=== PATIENT | female | born 1955 | race Caucasian/White ===

== ENCOUNTER 2016-12-16 05:39 | Inpatient (IN) ==
[2016-12-16] MEDS ORDERED: Nitroglycerin 0.4 MG TAB.SUBL SL ONE (05:53)
--- NOTE | 2016-12-16 05:57 | Emergency Department Note ---
Disposition Clinical Impression: Chest pain Qualifiers: Chest pain type: other chest pain Qualified Code(s): R07.89 - Other chest pain Disposition: Still a Patient Condition: Good Referrals: Unassigned,Provider [Non-Partnered Physician] - Forms: ED Satisfaction Letter Chest Pain HPI - General Chief Complaint: ED Chest Pain Stated Complaint: chest pain Time Seen by Provider: 12/16/16 05:55 Source: patient Mode of arrival: EMS Limitations: no limitations Vital Signs Reviewed: Yes Nursing Notes Reviewed: Yes - History of Present Illness HPI Narrative: 61-year-old female history of smoking abuse presents to the ER via EMS due to chest pain. Patient states pain began yesterday evening. Reports it was at rest. She describes a tightness in her chest with intermittent sharpness and radiation into her back. She reports that she was recently worked up for negative stress test back in May 2016. Patient reports she has felt some shortness of breath with this. No recent illnesses. No fevers, cough, wheezing , vomiting, diarrhea. No history of IA, DVT or PE. No other complaints. Pt complaint: chest pain Onset (ago): hour(s) Duration: constant Onset: during rest Pain Location: left chest Severity: moderate Quality: tightness Pain Radiation: back Improves with: nothing Worsens with: nothing Associated symptoms: Reports: dyspnea. Denies: nausea, vomiting, fever, cough Treatments prior to arrival chest pain: none - Related Data On Oral Contraceptives: No Home Medications Medication Instructions Recorded Confirmed Citalopram Hydrobromide 12/31/15 [Citalopram HBr] Cyclobenzaprine [Flexeril] 12/31/15 Meloxicam [Mobic] 12/31/15 Trazodone HCl [TraZODone] 12/31/15 12/31/15 Previous Rx's Medication Instructions Recorded Amoxicillin 875 mg PO BID #20 tablet 12/31/15 Allergies Allergy/AdvReac Type Severity Reaction Status Date / Time No Known Allergies Allergy Verified 09/25/15 09:18 All systems ED: reviewed and negative except as stated. Constitutional: Denies: fever Cardiovascular: Reports: chest pain. Denies: palpitations, dyspnea on exertion Respiratory: Reports: dyspnea. Denies: cough, wheezes Gastrointestinal: Denies: abdominal pain, nausea, vomiting Musculoskeletal: Reports: back pain. Denies: neck pain Chest Pain PMH - Past Medical History Medical history: Reports: non-contributory Surgical history: Reports: appendectomy, hysterectomy, orthopedic, other Psychiatric history: Reports: depression - Social History Smoking Status: Current every day smoker Alcohol use: Reports: none Drug use: Reports: none Physical Exam - General Limitations: no limitations General appearance: alert, in no apparent distress - Head Head exam: atraumatic, normocephalic, normal inspection - Eye Eye exam: Present: normal appearance, EOMI - ENT ENT exam: normal exam - Neck Neck exam: Present: normal inspection - Chest Chest inspection: Present: normal inspection, symmetric chest wall rise. Absent : tenderness - Respiratory Respiratory exam: Present: normal lung sounds bilaterally - Cardiovascular Cardiovascular exam: Present: regular rate, normal rhythm, normal heart sounds - Abdominal Exam Abdominal exam: Present: soft, Non-Tender. Absent: tenderness - Extremities Exam Extremities exam: Present: normal inspection, full ROM - Expanded Upper Extremity Exam Shoulder exam: Present: normal inspection, full ROM Arm exam: Present: normal inspection, full ROM Elbow exam: Present: normal inspection, full ROM Forearm/Wrist exam: Present: normal inspection, full ROM Hand exam: Present: normal inspection, full ROM - Expanded Lower Extremity Exam Hip/Pelvis exam: Present: normal inspection, full ROM Upper leg exam: Present: normal inspection, full ROM Knee exam: Present: normal inspection, full ROM Lower leg exam: Present: normal inspection, full ROM Ankle exam: Present: normal inspection, full ROM Foot/toe exam: Present: normal inspection, full ROM - Neurological Exam Neurological exam: Present: alert - Psychiatric Psychiatric exam: Present: normal affect, normal mood - Skin Skin exam: Present: warm, dry, intact, normal color Course Course Narrative: Patient seen and examined. Vital signs reviewed. We will get an EKG, chest x- ray as well as labs including troponin. We will give sublingual nitroglycerin and reassess. Vital Signs Temperature 98.7 F 12/16/16 06:02 Pulse Rate 107 12/16/16 06:02 Respiratory Rate 20 12/16/16 06:02 Blood Pressure 109/53 12/16/16 06:02 O2 Sat by Pulse Oximetry 94 L 12/16/16 06:02 Temperature 98.7 F 12/16/16 06:02 Pulse Rate 107 12/16/16 06:02 Respiratory Rate 20 12/16/16 06:02 Blood Pressure 109/53 12/16/16 06:02 O2 Sat by Pulse Oximetry 94 L 12/16/16 06:09 Oxygen Delivery Oxygen Delivery Nasal Cannula Chest Pain - MDM Narrative Medical decision making narrative: 61-year-old female presents to the ER due to chest pain, back pain and left- sided sharp chest pain intermittently. EKG is sinus tachycardia here. D-dimer and troponin were negative. She does have a discernible difference and radial pulses with diminishment on the left. Patient signed out the dayshift team. - Lab Data Lab results reviewed: Yes I reviewed the patient's lab results. Result diagrams: 12/16/16 06:28 12/16/16 06:28 Lab Results 12/16/16 12/16/16 12/16/16 Range/Units 06:28 06:28 06:28 WBC 7.9 (4.3-11.1) K/mcL RBC 4.86 (3.82-4.97) M/mcL Hgb 14.7 (11.5-15.4) g/dL Hct 43.9 (35.3-44.9) % MCV 90.3 (83.0-100.0) fL MCH 30.2 (28.0-33.3) pg MCHC 33.5 (31.6-35.5) g/dL RDW 13.2 (11.5-14.5) % Plt Count 303 (140-400) K/mcL MPV 10.6 (9.4-12.4) fL Immature Gran % 0.8 (0-4) % Seg Neutrophils % 83.0 % Lymphocytes % 6.1 % Monocytes % 8.6 % Eosinophils % 0.4 % Basophils % 1.1 % Neutrophils # 6.6 (1.6-8.9) K/mcL Lymphocytes # 0.5 L (0.6-4.6) K/mcL Monocytes # 0.7 (0.0-1.3) K/mcL Eosinophils # 0.0 (0.0-0.6) K/mcL Basophils # 0.1 (0.0-0.2) K/mcL PT 11.0 (9.4-12.1) Seconds INR 1.0 APTT 34.3 (26.0-36.0) Seconds D-Dimer 490 (0-500) ng/mLFEU Sodium (136-145) mEq/L Potassium (3.5-4.5) mEq/L Chloride (98-109) mEq/L Carbon Dioxide (19-29) mEq/L BUN (7-20) mg/dL Creatinine (0.57-1.11) mg/dL Est GFR ( Amer) (> 60) Est GFR (Non-Af Amer) (> 60) BUN/Creatinine Ratio (6-26) Glucose (70-99) mg/dL Calculated Osmolality (280-300) Calcium (8.6-10.8) mg/dL Troponin I (0-0.03) ng/mL B-Natriuretic Peptide 22 (0-100) pg/mL 12/16/16 12/16/16 Range/Units 06:28 06:28 WBC (4.3-11.1) K/mcL RBC (3.82-4.97) M/mcL Hgb (11.5-15.4) g/dL Hct (35.3-44.9) % MCV (83.0-100.0) fL MCH (28.0-33.3) pg MCHC (31.6-35.5) g/dL RDW (11.5-14.5) % Plt Count (140-400) K/mcL MPV (9.4-12.4) fL Immature Gran % (0-4) % Seg Neutrophils % % Lymphocytes % % Monocytes % % Eosinophils % % Basophils % % Neutrophils # (1.6-8.9) K/mcL Lymphocytes # (0.6-4.6) K/mcL Monocytes # (0.0-1.3) K/mcL Eosinophils # (0.0-0.6) K/mcL Basophils # (0.0-0.2) K/mcL PT (9.4-12.1) Seconds INR APTT (26.0-36.0) Seconds D-Dimer (0-500) ng/mLFEU Sodium 138 (136-145) mEq/L Potassium 4.4 (3.5-4.5) mEq/L Chloride 105 (98-109) mEq/L Carbon Dioxide 23 (19-29) mEq/L BUN 10 (7-20) mg/dL Creatinine 0.86 (0.57-1.11) mg/dL Est GFR ( Amer) > 60 (> 60) Est GFR (Non-Af Amer) > 60 (> 60) BUN/Creatinine Ratio 12 (6-26) Glucose 97 (70-99) mg/dL Calculated Osmolality 285 (280-300) Calcium 8.7 (8.6-10.8) mg/dL Troponin I 0.01 (0-0.03) ng/mL B-Natriuretic Peptide (0-100) pg/mL - Radiology Data Radiology results reviewed: Yes I reviewed the patient's radiology results. Chest X-Ray 12/16/16 05:53 IMPRESSION: No acute disease. D/ / Ifeanyi Carlisle MD / Ifeanyi Carlisle MD Interpreting Provider: Ifeanyi Carlisle MD - EKG Data EKG attestation: Yes I reviewed and interpreted this EKG. EKG results narrative: EKG demonstrates sinus tachycardia with a rate of 111. Normal axis. [place] interval 143 QRS duration [address] elevations or depressions. No acute ischemic findings. No significant changes from previous EKG dated 02/04/12. Heart Score - Score History: Slightly Suspicious EKG: Non Specific repolarisation Disturbance Age: 45-65 Risk Factors: No risk factors known Troponin: Less than normal limit HEART Score Total: 2 Attestation Statement - Attestation Attestation: IEmile MD, personally performed a history and physical exam of the patient and discussed their management with the resident. I reviewed the resident's note and agree with the documented findings, medical decision making , and plan of care. 61-year-old female presents to emergency department with a complaint of one day history of mid anterior substernal chest pressure associated with intermittent sharp stabbing pains in the left chest. She also complains of pain in her mid back which is more constant. No radiation of the chest pain to the neck or jaw or down the arm. No increased shortness of breath. No diaphoresis. No nausea or vomiting. Patient has a history of anxiety and panic attacks. She denies any history of heart disease. No history of hypertension or diabetes or hyperlipidemia. On examination patient is a well-developed well-nourished female in no acute distress. Alert and oriented 3. There is no cyanosis or diaphoresis. Chest is nontender to palpation. Breath sounds are clear and equal bilaterally. Heart regular rate and rhythm. Abdomen soft and nontender with normal bowel sounds. No acute changes on EKG. Chest x-ray negative. Labs reviewed. At shift change the patient is being signed out to the oncoming dayshift team, Dr. Hidalgo and Dr. Angel.
[2016-12-16 06:43] LABS: Basophils # 0.1 K/mcL (0.0-0.2); Basophils % 1.1 %; Eosinophils % 0.4 %; Hematocrit 43.9 % (35.3-44.9); Hemoglobin 14.7 g/dL (11.5-15.4); Immature Granulocytes % 0.8 % (0-4); Lymphocytes # 0.5 K/mcL (0.6-4.6); Lymphocytes % 6.1 %; Mean Corpuscular HGB Conc 33.5 g/dL (31.6-35.5); Mean Corpuscular Hemoglobin 30.2 pg (28.0-33.3); Mean Corpuscular Volume 90.3 fL (83.0-100.0); Mean Platelet Volume 10.6 fL (9.4-12.4); Monocytes # 0.7 K/mcL (0.0-1.3); Monocytes % 8.6 %; Neutrophils # 6.6 K/mcL (1.6-8.9); Platelet Count 303 K/mcL (140-400); Red Blood Count 4.86 M/mcL (3.82-4.97); Red Cell Distribution Width 13.2 % (11.5-14.5)
[2016-12-16 06:52] LABS: Activated Partial Thrombo Time 34.3 Seconds (26.0-36.0)
[2016-12-16 06:57] LABS: BUN/Creatinine Ratio 12 (6-26); Blood Urea Nitrogen 10 mg/dL (7-20); Calcium 8.7 mg/dL (8.6-10.8); Carbon Dioxide 23 mEq/L (19-29); Chloride 105 mEq/L (98-109); Glucose 97 mg/dL (70-99); Osmolality,Calculated 285 (280-300); Potassium 4.4 mEq/L (3.5-4.5); Sodium 138 mEq/L (136-145); eGFR For African Americans > 60 (> 60); eGFR For Non-African Americans > 60 (> 60)
--- NOTE | 2016-12-16 07:43 | Emergency Department Note ---
Disposition Clinical Impression: Chest pain Qualifiers: Chest pain type: other chest pain Qualified Code(s): R07.89 - Other chest pain Disposition: Admitted As Inpatient Condition: Fair Referrals: Unassigned,Provider [Non-Partnered Physician] - Forms: ED Satisfaction Letter Time of Disposition: 09:57 Chest Pain HPI - General Chief Complaint: ED Chest Pain Stated Complaint: chest pain Time Seen by Provider: 12/16/16 07:32 Source: patient Mode of arrival: EMS Limitations: no limitations Vital Signs Reviewed: Yes Nursing Notes Reviewed: Yes - History of Present Illness Pain Location: left chest Severity scale (1-10): 5 Quality: tightness Improves with: nothing Worsens with: nothing Associated symptoms: Reports: dyspnea. Denies: nausea, vomiting, fever, cough - Related Data On Oral Contraceptives: No Home Medications Medication Instructions Recorded Confirmed Citalopram Hydrobromide 40 mg PO DAILY 12/31/15 12/16/16 [Citalopram HBr] Cyclobenzaprine [Flexeril] 10 mg PO TID PRN 12/31/15 12/16/16 Albuterol Sulfate [Albuterol 2 puff IH Q4HR PRN 12/16/16 12/16/16 Inhaler] Calcium Carbonate/Vitamin D3 1 tab PO DAILY 12/16/16 12/16/16 [Calcium 500 + Vit D Caplet] Hydroxyzine HCl 12.5 - 25 mg PO Q8H 12/16/16 12/16/16 Ibuprofen [Advil] 200 mg PO Q6H PRN 12/16/16 12/16/16 Naproxen Sodium [Aleve] 220 mg PO 12/16/16 Vitamin E (Dl,Tocopheryl Acet) 400 unit PO DAILY 12/16/16 12/16/16 [Vitamin E] Allergies Allergy/AdvReac Type Severity Reaction Status Date / Time acetaminophen [From Percocet] AdvReac Itching Verified 12/16/16 09:42 Oxycodone [From Percocet] AdvReac Itching Verified 12/16/16 09:42 Constitutional: Denies: fever Cardiovascular: Reports: chest pain. Denies: palpitations, dyspnea on exertion Respiratory: Reports: dyspnea. Denies: cough, wheezes Gastrointestinal: Denies: abdominal pain, nausea, vomiting Musculoskeletal: Reports: back pain. Denies: neck pain Chest Pain PMH - Past Medical History Medical history: Reports: non-contributory Surgical history: Reports: appendectomy, hysterectomy, orthopedic, other Psychiatric history: Reports: depression - Social History Smoking Status: Current every day smoker Alcohol use: Reports: none Drug use: Reports: none Physical Exam - General Limitations: no limitations General appearance: alert, in no apparent distress Course Course Narrative: Care signed out from the night team Dr. Bird and Dr. Gaspar, patient does have a history of aneurysms in her family brother with a defibrillator and the aneurysm, and equal pulses in tachycardia with chest pain into her back, even though the d-dimer is unremarkable, CTA chest ordered See Dr gaspar's note for documentation - Reevaluation(s) Reevaluation #1: CT of chest negative, given heart score of 4, discussed that the patient likely needs admission for chest pain rule out, Dr. Curtis accepting physician Time: 09:57 Vital Signs Temperature 98.7 F 12/16/16 06:02 Pulse Rate 107 12/16/16 06:02 Respiratory Rate 20 12/16/16 06:02 Blood Pressure 109/53 12/16/16 06:02 O2 Sat by Pulse Oximetry 94 L 12/16/16 06:02 Temperature 98.7 F 12/16/16 06:02 Pulse Rate 97 12/16/16 09:10 Respiratory Rate 18 12/16/16 09:10 Blood Pressure 131/72 12/16/16 09:10 O2 Sat by Pulse Oximetry 97 12/16/16 09:10 Oxygen Delivery Oxygen Delivery Nasal Cannula Chest Pain - MDM Narrative Medical decision making narrative: 61-year-old female with hard score 4, chest pain or rest since yesterday, radiating to back, concerning for ACS given her story there are no EKG changes initial troponin was negative, admitted to hospital service for chest pain rule out - Differential Diagnosis Likely: stable angina, unstable angina pectoris, atypical chest pain, st elevation myocardial infraction, chest pain - Medical Records Medical records reviewed: Yes I reviewed the patient's medical records. - Lab Data Lab results reviewed: Yes I reviewed the patient's lab results. Result diagrams: 12/16/16 06:28 12/16/16 06:28 Lab Results 12/16/16 12/16/16 12/16/16 Range/Units 06:28 06:28 06:28 WBC 7.9 (4.3-11.1) K/mcL RBC 4.86 (3.82-4.97) M/mcL Hgb 14.7 (11.5-15.4) g/dL Hct 43.9 (35.3-44.9) % MCV 90.3 (83.0-100.0) fL MCH 30.2 (28.0-33.3) pg MCHC 33.5 (31.6-35.5) g/dL RDW 13.2 (11.5-14.5) % Plt Count 303 (140-400) K/mcL MPV 10.6 (9.4-12.4) fL Immature Gran % 0.8 (0-4) % Seg Neutrophils % 83.0 % Lymphocytes % 6.1 % Monocytes % 8.6 % Eosinophils % 0.4 % Basophils % 1.1 % Neutrophils # 6.6 (1.6-8.9) K/mcL Lymphocytes # 0.5 L (0.6-4.6) K/mcL Monocytes # 0.7 (0.0-1.3) K/mcL Eosinophils # 0.0 (0.0-0.6) K/mcL Basophils # 0.1 (0.0-0.2) K/mcL PT 11.0 (9.4-12.1) Seconds INR 1.0 APTT 34.3 (26.0-36.0) Seconds D-Dimer 490 (0-500) ng/mLFEU Sodium (136-145) mEq/L Potassium (3.5-4.5) mEq/L Chloride (98-109) mEq/L Carbon Dioxide (19-29) mEq/L BUN (7-20) mg/dL Creatinine (0.57-1.11) mg/dL Est GFR ( Amer) (> 60) Est GFR (Non-Af Amer) (> 60) BUN/Creatinine Ratio (6-26) Glucose (70-99) mg/dL Calculated Osmolality (280-300) Calcium (8.6-10.8) mg/dL Troponin I (0-0.03) ng/mL B-Natriuretic Peptide 22 (0-100) pg/mL 12/16/16 12/16/16 Range/Units 06:28 06:28 WBC (4.3-11.1) K/mcL RBC (3.82-4.97) M/mcL Hgb (11.5-15.4) g/dL Hct (35.3-44.9) % MCV (83.0-100.0) fL MCH (28.0-33.3) pg MCHC (31.6-35.5) g/dL RDW (11.5-14.5) % Plt Count (140-400) K/mcL MPV (9.4-12.4) fL Immature Gran % (0-4) % Seg Neutrophils % % Lymphocytes % % Monocytes % % Eosinophils % % Basophils % % Neutrophils # (1.6-8.9) K/mcL Lymphocytes # (0.6-4.6) K/mcL Monocytes # (0.0-1.3) K/mcL Eosinophils # (0.0-0.6) K/mcL Basophils # (0.0-0.2) K/mcL PT (9.4-12.1) Seconds INR APTT (26.0-36.0) Seconds D-Dimer (0-500) ng/mLFEU Sodium 138 (136-145) mEq/L Potassium 4.4 (3.5-4.5) mEq/L Chloride 105 (98-109) mEq/L Carbon Dioxide 23 (19-29) mEq/L BUN 10 (7-20) mg/dL Creatinine 0.86 (0.57-1.11) mg/dL Est GFR ( Amer) > 60 (> 60) Est GFR (Non-Af Amer) > 60 (> 60) BUN/Creatinine Ratio 12 (6-26) Glucose 97 (70-99) mg/dL Calculated Osmolality 285 (280-300) Calcium 8.7 (8.6-10.8) mg/dL Troponin I 0.01 (0-0.03) ng/mL B-Natriuretic Peptide (0-100) pg/mL - Radiology Data Radiology results reviewed: Yes I reviewed the patient's radiology results. - EKG Data EKG attestation: Yes I reviewed and interpreted this EKG. EKG shows normal: sinus rhythm Rate: tachycardia (Sinus tach rate of 111, [place] 143 QRS A9 QTC [address] elevations or depressions) Heart Score - Score History: Moderately Suspicious EKG: Normal Age: 45-65 Risk Factors: Equal/Greater than 3 risk factor or history of atherosclerotic disease Troponin: Less than normal limit HEART Score Total: 4 Attestation Statement - Attestation Attestation: I examined this patient and my medical decision-making was reviewed with the SCARIFIER OPERATOR/PA/Advanced Practice Nurse/Resident Physician. I agree with the documented findings, disposition and treatment plan as described except to the extent set forth below. Patient signed out pending reevaluation. Her d-dimer is negative and she continues to have pleuritic type pain. Tachycardic. Family history of thoracic aneurysms. CTA ordered. CT is unremarkable. We will admit for further cardiac workup.
[2016-12-16] MEDS ORDERED: *HR* Morphine 2 MG/ML SYRINGE IV ONE (09:18)
[2016-12-16] MEDS ORDERED: Ondansetron 4 MG/2 ML VIAL IV ONE (09:18)
[2016-12-16] MEDS ORDERED: *HR* Morphine 2 MG/ML SYRINGE IVP PRN (09:37)
[2016-12-16] MEDS ORDERED: Naloxone 0.4 MG/ML INJ IVP PRN (09:37)
--- NOTE | 2016-12-16 10:59 | Internal Med History&Physical ---
Date of Encounter: 12/16/16 Time of Encounter: 10:45 Assessment and Plan (1) Chest pain Current visit: Yes Status: Acute Patient with chest pain. Observation in the hospital. Current troponins. Consult cardiology for recommendations. Patient had a negative stress test in June. We will check lipid profile, A1c level. Monitor with telemetry. Given positive family history, age and sex moderate to high risk for coronary artery disease. Qualifiers: Chest pain type: precordial pain Qualified Code(s): R07.2 - Precordial pain (2) Tobacco abuse Current visit: Yes Status: Acute Patient smokes half a pack of cigarettes per day. Counseled about cessation. Internal Medicine - H&P: HPI Chief complaint: Chest pain Admitted From: Emergency Dept Plans for Post Hospital Care: Home History of present illness: Ms. Soler is a 61 year old female with a history of anxiety disorder presented to the ER with complaints of chest pain. This began yesterday afternoon. She has constant pain on the left side of her chest and an intermittent sharp pain that radiates down laterally across the chest and to her back. Pain is 8 out of 10 in severity. It improved after she received morphine and nitroglycerin in the ER. She has had similar kind of pain before when she had her anxiety episodes. She had cardiac stress test in June which was negative for any ischemia. Presently she does not feel anxious and does not feel like she is under stress. She denies any heartburn, cough or shortness of breath. Denies palpitations. Past Med Surg Social Fam HX - Past Medical History Attestation: Yes The following information was validated with the patient. Source: patient Medical history: no medical history Psychiatric history: anxiety, depression - Past Surgical History Surgical History: appendectomy, hysterectomy, orthopedic, other - Social History Smoking Status: Current every day smoker Smokeless Tobacco Status: No Alcohol use: none Drug use: none - Additional Family History Additional family history: Family history of heart disease. One brother has a defibrillator in place and another brother had a massive [place] and . Internal Medicine - H&P: Meds Citalopram Hydrobromide [Citalopram HBr] 40 mg PO DAILY 12/31/15 [History] Cyclobenzaprine [Flexeril] 10 mg PO TID PRN 12/31/15 [History] Albuterol Sulfate [Albuterol Inhaler] 2 puff IH Q4HR PRN 12/16/16 [History] Calcium Carbonate/Vitamin D3 [Calcium 500 + Vit D Caplet] 1 tab PO DAILY [History] Hydroxyzine HCl 12.5 - 25 mg PO Q8H 12/16/16 [History] Ibuprofen [Advil] 200 mg PO Q6H PRN 12/16/16 [History] Naproxen Sodium [Aleve] 220 mg PO 12/16/16 [History] Vitamin E (Dl,Tocopheryl Acet) [Vitamin E] 400 unit PO DAILY 12/16/16 [History] Allergies acetaminophen [From Percocet] Adverse Reaction (Verified 12/16/16 09:42) Itching Oxycodone [From Percocet] Adverse Reaction (Verified 12/16/16 09:42) Itching All Systems PM: A 10-system review of systems was performed and is negative for pertinent findings except as documented above in the HPI. - Constitutional Constitutional: no chills, no fever(s), no night sweats - EENT Eyes: no change in vision, no discharge, no pain, no photophobia Ears: no ear discharge, no ear pain, no tinnitus Nose, mouth and throat: no dysphagia, no nasal discharge, no neck pain, no sore throat - Cardiovascular Cardiovascular ROS IM: chest pain, no diaphoresis, no dyspnea, no lightheadedness, no palpitations, no syncope - Respiratory Respiratory: no cough, no dyspnea, no wheezing, no excessive phlegm production - Gastrointestinal Gastrointestinal: no abdominal pain, no diarrhea, no hematemesis, no hematochezia, no melena, no nausea, no vomiting - Genitourinary Genitourinary: no change in urinary stream, no dysuria, no flank pain, no hematuria - Musculoskeletal Musculoskeletal ROS IM: no numbness, no tingling - Integumentary Integumentary IM: no rash, no unusual bruising - Neurological Neurological ROS: no confusion, no convulsions, no focal weakness, no numbness, no tingling, no tremor(s) - Hematologic/Lymphatic Hematologic/Lymphatic: no easy bruising - Constitutional Vitals: Temp Pulse Resp BP Pulse Ox 98.5 F 98 18 144/76 94 L 12/16/16 10:35 12/16/16 10:35 12/16/16 10:35 12/16/16 10:35 12/16/16 10:35 General appearance: Present: cooperative, mild distress, A&O X 3, answers questions appropriately - Head Head exam: Present: atraumatic, normocephalic - Eye Eye exam: Present: EOMI, PERRL, conjuntiva pink, sclera anicteric - Neck Neck exam general surgery: Present: supple, trachea midline. Absent: lymphadenopathy - Respiratory Respiratory exam: Present: chest wall tenderness (Left sided), CTAB. Absent: accessory muscle use, rales, rhonchi, wheezes - Cardiovascular Cardiovascular exam: Present: RRR, +S1, +S2, tachycardia. Absent: diastolic murmur, gallop, rubs, systolic murmur - GI/Abdominal GI/Abdominal exam: Present: normal bowel sounds, soft, no peritoneal signs. Absent: distended, tenderness - Extremities Exam Extremities exam: Present: warm, radial pulses palpable and symetrical. Absent : calf tenderness, cyanotic, pedal edema - Neurological Exam Neurological exam: Present: alert, CN II-XII intact, oriented X3, no focal deficits. Absent: facial droop, speech deficit - Psychiatric Psychiatric exam: Present: normal affect, normal mood - Skin Skin exam: Present: dry, intact Internal Med - H&P Results - Labs CBC & Chem 7: 12/16/16 06:28 12/16/16 06:28 - EKG Data -: EKG Interpreted by Myself EKG shows normal: sinus rhythm Rate: tachycardia - Impressions Impressions Chest X-Ray 12/16/16 05:53 IMPRESSION: No acute disease. D/ / Ifeanyi Carlisle MD / Ifeanyi Carlisle MD Interpreting Provider: Ifeanyi Carlisle MD Chest CTA 12/16/16 07:36 IMPRESSION: 1. No acute pulmonary artery embolism. 2. Emphysema with biapical fibrotic changes. 3. Indeterminate mediastinal and hilar lymph nodes measure up to 1.3 cm. Findings may be reactive in nature although indeterminate. D/ / 12/16/2016 08:42:53 Joaquim Singh MD / juan Interpreting Provider: Joaquim Singh MD - Attending Attestation This document has been at least partially created by [employer] recognition technology by Dr. Curtis. Errors in grammar, wording or other phrases may exist. If errors are found after the documentation is signed, they will be addressed individually in the addendum section of this document when appropriate.
--- NOTE | 2016-12-16 11:46 | Cardiology Consult Note ---
Date of Encounter: 12/16/16 Time of Encounter: 11:00 Assessment and Plan (1) Atypical chest pain Current Visit: Yes Status: Acute Per cardiology: -Patient presents with left sided chest pain that was constant. Pain occured at rest. Patient describes at pressure with intermittent stabbing pains. Pateint states at worst, she would have rated pain a 7/10. Denies relieving factors. States pain was worsened with laying down, denies any other aggervating factors. -Troponins negative x2. -ECG with sinus tachycardia with HR 111. -Currently chest pain free, states she was recently given pain medicine by nurse. -Stress test 07/03/2016 with average excercise capacity, no chest pain, but did report left arm ache in recovery, excercise ECG negative for ischemia, LVEF 70% , perfusion imaging negative for ischemia or infarct. -Echocardiogram 06/19/16 with LVEF 70%, normal LV chamber and size, mild left ventricular diastolic dysfunction, no evidence of pulmonary hypertension, trivial pericardial effusion, no significant valvular dysfunction, hyperkinesis of apex, apical inferior, mid inferior, basal inferior, apical anterior, mid anterior, basal anterior, apical septal, mid inferior septal, basal inferior septal, apical lateral, mid anterior lateral, basal anterior septal, and basal inferior obrien. -Holter 05/2016 NSR, rare PACs, one isolated PVC noted. -Currently not on any antianginals. -Significant family history of CAD with brother with UT at 54 , father with UT no stenting or bypass, other brother with ICD unknown stenting no bypass. -Patient and family requesting left heart cath. Patient and family state they prefer to known if there is stenosis. -Will add ASA 81mg po dialy. -Will add beta jolly. -Risk and benefits of LHC explained to patient and family. We discussed options of optimizing medications and f/u as outpatient vs LHC and they have requested LHC. Will discuss with Dr. Loya and Dr. Coulter. -Further recommendations following LHC. (GAVIN) (2) Tobacco abuse Current Visit: Yes Status: Chronic Per cardiology: -Known smoker. States smokes half a pack per day for the last 40 years. -Smoking cessation given fro 3-5 minutes. (GAVIN) (3) Left arm pain Current Visit: Yes Status: Chronic Per cardiology: -Left arm pain for several months. -Left upper extremity arterial duplex 07/03/[address] Loya with left upper extremity normal vessels. -States inability to obtain BP in left arm. -Will check BP in both arms. -Will discuss with Dr. Loya. (GAVIN) Discussion w patient/family: The assessment and plan as outlined above was discussed with the patient and/or family members who expressed understanding and agreement. All questions were answered. Thank you for involving us in the care of your patient. Please call with any questions. Patient seen and examined with DELMA Abrams Discussed and reviewed with . History of Present Illness Consult date: 12/16/16 Requesting physician: Marissa Curtis Consult reason: chest pain Chief complaint: chest pain History of present illness: Ms. Soler is a 61 year old female with a relevant past medical history of COPD, hyperlipidemia, chest pain, and smoking. Patient states that she started having back and left sided pain on Friday. On Friday, she started with left sided chest pain. Patient states that pain occured at rest and at its worse she would have rated it a 7/10. Patient states that pain was not relieved by anything. Patient states pain was worsened by laying flat. Patient states movement or exertion did not make pain worse. Patient states pain was like chest pressure with intermittent stabbing pains. Patient has had chest pain before, but she states this feels different than previous episodes. Patient denies congestion, fever, nausea, or vomiting. Patient admits to cough that started around the same time as pain symptoms. Patient admits to smoking half pack per day for the past 40 years. Patient states throughout the years she has averaged half of a pack per day. Patient states she had an ER visit to [place] for chest pain prior. She states this was in April or May of 2016. Of note, I am unable to locate any documents from apparent visit in [facility] or [facility]. Patient states this visit led to be referred to Dr. Loya by her PCP. She saw Dr. Loya on 06/14/16 and a stress test was ordered. No follow up was scheduled. (GAVIN) Past Med Surg Social Fam HX - Past Medical History Attestation: Yes The following information was validated with the patient. Source: patient, old records reviewed, obtained from family Medical history: COPD, hyperlipidemia, hypertension Psychiatric history: anxiety, depression - Past Surgical History Surgical History: appendectomy, hysterectomy, orthopedic, other - Social History Smoking Status: Current every day smoker Packs per day: 1/2 ppd for 40 years Smokeless Tobacco Status: No Alcohol use: none Drug use: none - Family History Brother Hx Family Cardiac Disorders: Yes (AAA, Pacer) Medications and Allergies Citalopram Hydrobromide [Citalopram HBr] 40 mg PO DAILY 12/31/15 [History] Cyclobenzaprine [Flexeril] 10 mg PO TID PRN 12/31/15 [History] Albuterol Sulfate [Albuterol Inhaler] 2 puff IH Q4HR PRN 12/16/16 [History] Calcium Carbonate/Vitamin D3 [Calcium 500 + Vit D Caplet] 1 tab PO DAILY [History] Hydroxyzine HCl 12.5 - 25 mg PO Q8H 12/16/16 [History] Ibuprofen [Advil] 200 mg PO Q6H PRN 12/16/16 [History] Naproxen Sodium [Aleve] 220 mg PO 12/16/16 [History] Vitamin E (Dl,Tocopheryl Acet) [Vitamin E] 400 unit PO DAILY 12/16/16 [History] Allergies acetaminophen [From Percocet] Adverse Reaction (Verified 12/16/16 09:42) Itching Oxycodone [From Percocet] Adverse Reaction (Verified 12/16/16 09:42) Itching All Systems Review: A 10-system review of systems was performed and is negative for pertinent findings except as documented above in the HPI. - Constitutional Constitutional: fatigue - Cardiovascular Cardiovascular: as per HPI, chest pain at rest, dyspnea at rest, dyspnea on exertion - Respiratory Respiratory: cough, dyspnea Physical Examination Vital Signs, Last 4 Hours Temp Pulse Resp BP Pulse Ox 12/16/16 10:35 98.5 F 98 18 144/76 94 L 12/16/16 10:26 18 131/72 General: Conversant, No Apparent Distress HEENT: Atraumatic, Normocephaly, Mucus Membranes Moist Neck: No JVD, Normal carotid pulses Cardiac: Reg Rate and Rhythm, Normal S1 and S2, No Murmur Lungs: Other (Diminished breath sounds to bilateral bases. ) Neuro: Alert and responsive, No focal deficits noted Abdomen: Soft, Non-Tender Skin: No rashes noted on visualized skin Musculoskeletal: No Chest Wall Tenderness Extremities: No Clubbing, No Cyanosis, No Edema, Normal Pulses Results 12/16/16 06:28 12/16/16 06:28 Impressions Chest X-Ray 12/16/16 05:53 IMPRESSION: No acute disease. D/ / Ifeanyi Carlisle MD / Ifeanyi Carlisle MD Interpreting Provider: Ifeanyi Carlisle MD Chest CTA 12/16/16 07:36 IMPRESSION: 1. No acute pulmonary artery embolism. 2. Emphysema with biapical fibrotic changes. 3. Indeterminate mediastinal and hilar lymph nodes measure up to 1.3 cm. Findings may be reactive in nature although indeterminate. D/ / 12/16/2016 08:42:53 Joaquim Singh MD / [email or web address] Interpreting Provider: Joaquim Singh MD Active Medications Acetaminophen (Tylenol) 650 mg PO Q6HR PRN PRN Reason: Mild Pain (1-3) Stop: 06/17/17 09:38 Albuterol Sulfate (Albuterol Inhaler) 2 puff IH Q4HR PRN PRN Reason: Shortness Of Breath Stop: 06/17/17 10:20 Citalopram Hydrobromide (Celexa) 40 mg PO DAILY RAVEN Stop: 06/18/17 09:01 Cyclobenzaprine HCl (Flexeril) 10 mg PO TID PRN PRN Reason: Muscle Spasm Stop: 06/17/17 10:20 Hydroxyzine Pamoate (Hydroxyzine Pamoate) 25 mg PO Q8H RAVEN Stop: 06/17/17 10:31 Morphine Sulfate (Morphine Sulfate) 2 mg IVP Q4HR PRN PRN Reason: Severe Pain (7-10) Stop: 06/17/17 09:38 Naloxone HCl (Narcan) 0.4 mg IVP Q2MIN PRN PRN Reason: Opioid Reversal Stop: 06/17/17 09:38 Pantoprazole Sodium (Protonix) 40 mg IVP Q12HR RAVEN Stop: 06/17/17 18:01 Laboratory Tests 08/02/15 12/16/1612/16/17 08:39 06:28 06:28 Hgb Hct D-Dimer 490 Potassium Creatinine 0.85 Troponin I B-Natriuretic Peptide 12/16/16 12/16/16 12/16/16 06:28 06:28 06:28 Hgb 14.7 Hct 43.9 D-Dimer Potassium 4.4 Creatinine 0.86 Troponin I 0.01 B-Natriuretic Peptide 12/16/16 11:04 Hgb Hct D-Dimer Potassium Creatinine Troponin I 0.01 B-Natriuretic Peptide - Imaging and Cardiology Chest Xray: report reviewed Stress Test: report reviewed Echo: report reviewed Other Results: Chest CTA results reviewed. - EKG Interpretation EKG results cardiology: personally reviewed (ECG with sinus tachycardia with heart rate 111.), other (Telemetry reviewed with average heart rate 106, sinus tachycardia.) Consult Discharge Plan - Plan Referrals: Gabriel Infante MD [Primary Care Provider] -
[2016-12-16 11:56] LABS: Hemoglobin A1C 5.5 %
[2016-12-16] MEDS: Acetaminophen 325 MG TABLET PO PRN ×2 (12:49→23:18)
[2016-12-16] MEDS: hydrOXYzine pamoate 25 MG CAPSULE PO SCH ×2 (12:49→21:01)
[2016-12-16] MEDS: Aspirin 81 MG TAB.CHEW PO SCH (15:33)
[2016-12-16] MEDS ORDERED: Verapamil 5 MG/2 ML VIAL ONE (15:53)
[2016-12-16] MEDS ORDERED: *HR* Heparin 10,000 UNIT/10 ML VIAL ONE (15:54)
[2016-12-16] MEDS ORDERED: Nitroglycerin 1,000 MCG/10 ML VIAL IV ONE (15:54)
[2016-12-16] MEDS ORDERED: Heparin 1,000 UNITS/500 mL NS 500 ML ONE (15:54)
[2016-12-16] MEDS ORDERED: 0.9 % Sodium Chloride 1,000 ML ONE (15:54)
[2016-12-16] MEDS ORDERED: *HR* Midazolam HCl 2 MG/2 ML VIAL ONE (16:12)
[2016-12-16] MEDS ORDERED: *HR* FentaNYL (PF) 100 MCG/2 ML VIAL ONE (16:12)
--- NOTE | 2016-12-16 16:17 | Pre-Sedation Evaluation ---
Pre-sedation evaluation - Pre-sedation checklist Date of procedure: 12/16/16 Procedure: Heart Cath Recent Vitals: Last Vital Signs Temp 98.5 F 12/16/16 10:35 Pulse 98 12/16/16 10:35 Resp 18 12/16/16 10:35 BP 144/76 12/16/16 10:35 Pulse Ox 94 L 12/16/16 10:35 H&P (including ROS) documented in medical record: Yes Previous reaction to sedatives/anesthetics: No Dietary Status: NPO 6 hours prior to procedure Dentition: dentures removed ASA Classification *see protocol: CLASS II-Mild systemic disease Plan of Care: Pt appropriate candidate for procedure/moderate/conscious sedation , Risks/benefits of procedure/sedation discussed w/ patient/family
--- NOTE | 2016-12-16 17:04 | Invasive Diagnostic Lab Proc ---
Name: Didi Soler January Date of Study: 12/16/2016 Date: 1955 Ht: 65.0in Medical Record#: [id number] Age: 61 Wt: 158.73lb Gender: Female BSA: 1.79 Order #: [id number] BMI: 26.41 Physicians Procedure Physician: Mehul Coulter MD, [facility] Referring MD: Referring MD: Staff Name Position Time In Ni Coulter RN Professor Of Political Science 04:14 PM Maura Ornelas RN Professor Of Political Science 04:14 PM Zee Somers RN Monitor 04:15 PM Matt, Svetlana RT (R) 04:15 PM Madison Araujo RT (R) Scrub 04:15 PM Indications Indication Unstable Angina Procedures Performed Procedure L HRT ARTERY/VENTRICLE ANGIO Pre-Procedure Checklist Informed consent is complete signed and on chart. H\\T\\P is on chart. ID band is on and ID verified with patient. Patient NPO for procedure The procedure was described for the patient and questions were answered. Blood Pressure: 144/74 ECG is on chart. Rhythm: NSR Plan of Care Patient will tolerate the procedure without complications. Adequate level of comfort will be maintained. Hemodynamics will remain stable Patient will recover from procedure without complications. Respiratory function will be maintained. Cardiac rhythm will remain stable. Patient temperature will be maintained. Patient and/or family have verbalized understanding of the procedure. Patient Education Chief Complaint/Reason for Test: Cardiac Cath Developmental Category: Adult (18-64 years) Developmentally Appropriate for Age: Yes Learning Barriers: None Education Needs: Procedure Education Method: Verbal Information Taught: Cardiac Cath Educational Evaluation: Able to repeat information Intravenous Access Time IV Size Location DC'd Fluid/Drip Rate Units RN 04:11 PM 20g 1 /" Patent On Arrival Rt Antecubital 0.9NaCl 25 ml/hr Ni Coulter RN Allergies Oxycodone acetaminophen Vital Signs Time BP (mmHg) HR (bpm) O2 Sat. RR (bpm) LOC 04:12 PM 144 / 74 98 94 % 18 5 = Fully awake and oriented or at pre-proc level 04:27 PM / % 5 = Fully awake and oriented or at pre-proc level 04:27 PM / % 5 = Fully awake and oriented or at pre-proc level 04:24 PM 134 / 61 84 86 % 13 04:29 PM 101 / 47 83 85 % 04:34 PM 100 / 55 81 90 % 16 04:38 PM 98 / 43 81 90 % 17 04:42 PM 107 / 40 82 90 % 13 04:44 PM 108 / 46 77 92 % 93 04:49 PM 119 / 56 % 94 04:42 PM / % 5 = Fully awake and oriented or at pre-proc level Procedural Medications Time Medication Dose Units Method Given By 04:25 PM Oxygen 2 L/min nasal cannula Ni Coulter RN 04:25 PM Versed 2 mg Intravenous Ni Coulter RN 04:25 PM Fentanyl 50 mcg Intravenous Ni Coulter RN 04:28 PM Oxygen 4 L/min oxymask Ni Coulter RN 04:33 PM Lidocaine 2% 0.5 ml Subcutaneous Mehul Coulter MD, [facility] 04:34 PM Heparin 4000 units Intraarterial Mehul Coulter MD 04:34 PM Nitroglycerin 200 mcg Intraarterial Mehul Coulter MD 04:34 PM Verapamil 2.5 mg Intraarterial Mehul Coulter MD, [facility] ASA Classification: CLASS II- Mild systemic disease (i.e. well-controlled diabetes, hypertension, asthma, cigarette smoking) Cam Score Preprocedure Postprocedure Activity 2- Moves 4 extremities sustained head lift Activity 2- Moves 4 extremities sustained head lift Circulation 2- SBP +/= 20 points of pre-anesthetic level Circulation 2- SBP +/= 20 points of pre-anesthetic level Consciousness 2- Awake and alert oriented x 3 Consciousness 2- Awake and alert oriented x 3 O2 Saturation 1- Needs O2 inhalation to maintain O2 saturation of 90% O2 Saturation 1- Needs O2 inhalation to maintain O2 saturation of 90% Respiratory 2- Able to deep breathe and cough well Respiratory 2- Able to deep breathe and cough well Total Score 9 Total Score 9 Contrast Agent: Isovue Diagnostic Contrast: 60 ml Total Contrast: 60 ml Fluoro Dose: 152 mGy Procedure Log Time Note Enter By 04:14 PM Pt arrived to pathology laboratory director 2 at 16:14 ejohnson 04:14 PM Ni Coulter RN Position: Professor Of Political Science Time in: 16:14 ejohnson 04:15 PM Maura Ornelas RN Position: Professor Of Political Science Time in: 16:14 ejohnson 04:15 PM Zee Somers RN Position: Monitor Time in: 16:15 ejohnson 04:15 PM Svetlana Gutierrez RT (R) Position: Time in: 16:15 ejohnson 04:15 PM Madison Araujo RT (R) Position: Scrub Time in: 16:15 ejohnson 04:15 PM Patient charges- Angio tray pack, Navilyst 3mm J, Pulse Oximetry and ACIST tubing and transducer ejohnson 04:15 PM Case Delayed No ejohnson 04:15 PM Physician arrived 16:15 ejohnson 04:15 PM ASA Class CLASS II- Mild systemic disease (i.e. well-controlled diabetes, hypertension, asthma, cigarette smoking) ejohnson 04:15 PM Meet and greet completed ejohnson 04:15 PM Sign in performed according to hospital policy. ejohnson 04:15 PM Procedure start 16:15 ejohnson 04:20 PM CathStat 04:23 PM Vitals capture started with the following parameters, Patient=Adult, Interval=5 min, Initial Jjsslsie=713 mmHg, Deflation Rate=5 mmHg, Cuff placed on Left Arm 04:24 PM HR=84 bpm, HKDC=480/61 mmhg, SpO2=86 %, Resp=13 B/min 04:25 PM Time: 16:25 Oxygen on at 2 L/min per nasal cannula by Ni Coulter RN ejkyguilherme 04:25 PM Time: 16:25 Versed 2 mg Intravenous Given by Ni Coulter RNkyguilherme 04:26 PM Time: 16:25 Fentanyl 50 mcg Intravenous Given by Ni Coulter RNkyguilherme 04:26 PM Recorded ECG: HR=86 Condition=Condition 1 04:27 PM Time: 16:27 Patient comfortable and pain free: Yes ejohnson 04:27 PM Time: 16:27LOC: 5 = Fully awake and oriented or at pre-proc level ejohnson 04:29 PM Time: 16:28 Oxygen on at 4 L/min per oxymask by Ni Coulter RNkyguilherme 04:29 PM HR=83 bpm, AYKC=073/47 mmhg, SpO2=85.0 %, Comment=SR 04:33 PM Time out performed according to hospital policy ejohnson 04:33 PM Time: 16:33 0.5 ml to Subcutaneous Given by Mehul Coulter MD, [facility] ejohnson 04:34 PM HR=81 bpm, XOVB=120/55 mmhg, SpO2=90 %, Resp=16 B/min, Comment=SR 04:34 PM Access obtained by percutaneous puncture. 6Fr 10cm Terumo Glidesheath sheath placed in right Radial artery. [id number] ejohnson 04:34 PM Time: 16:34 Patient given 4,000 units Heparin, 200 mcg Nitroglycerin, and 2.5 mg Verapamil Intraarterial by Mehul Coulter MD, [facility] ejohnson 04:36 PM 5Fr TIG catheter inserted over the wire DN ejohnson 04:37 PM LCA angiography performed in multiple views. ejohnson 04:37 PM Pressure channel 1 zeroed. 04:38 PM Recorded Pressure: Ao, HR=82, Condition=Condition 1 (Aorta) Ao 78/63/71 04:38 PM NIBP STAT measurement started. 04:38 PM HR=81 bpm, NIBP=98/43 mmhg, SpO2=90 %, Resp=17 B/min, Comment=SR 04:39 PM Recorded Pressure: Ao, HR=81, Condition=Condition 1 (Aorta) Ao 81/63/72 04:40 PM RCA angiography performed in multiple views. ejohnson 04:40 PM Recorded Pressure: Ao, HR=81, Condition=Condition 1 (Aorta) Ao 85/68/76 04:40 PM Recorded Pressure: Ao, HR=81, Condition=Condition 1 (Aorta) Ao 79/64/72 04:41 PM Coronary Dominance: right ejohnson 04:41 PM Lesion found in Mid RCA. Pre Stenosis: 40 Pre KERMIT Flow: 3: Complete and Brisk Flow/Perfusion ejohnson 04:41 PM Right Coronary, Right Posterior Descending Arteries with Right Posterolateral and Acute Marginal branches with 40 % stenosis. ejohnson 04:41 PM Catheter removed ejohnson 04:41 PM 5Fr Pigtail catheter inserted over the wire DN ejohnson 04:41 PM NIBP STAT measurement started. 04:42 PM HR=82 bpm, IQDN=225/40 mmhg, SpO2=90 %, Resp=13 B/min, Comment=SR 04:42 PM Recorded Pressure: LV, HR=77, Condition=Condition 1 (Left Ventricle) LV 85/15/22 04:42 PM Time: 16:27LOC: 5 = Fully awake and oriented or at pre-proc level ejohnson 04:42 PM Time: 16:27 Patient comfortable and pain free: Yes ejohnson 04:43 PM Recorded Pressure: LV, Ao, HR=81, Condition=Condition 1 (Left Ventricle) LV 85/15/43, (Aorta) Ao 94/66/79 04:43 PM Catheter selectively placed in left ventricle ejohnson 04:43 PM Bolus angiogram of left Ventricle complete: 10 ml/sec for a total of 20 mls ejohnson 04:43 PM Catheter removed ejohnson 04:44 PM Procedure completed at 16:44 ejohnson 04:44 PM HR=77 bpm, ICYH=804/46 mmhg, Resp=12 B/min, Comment=SR 04:44 PM Arterial sheath pulled, Vasc Band closure device used and was Successful S/N. ejohnson 04:45 PM Sign out completed: Radiation Dose 151.78 mGy Fluoro Time: 1.7 Isovue 370 - 200ml contrast 60 ml given by Mehul Coulter MD, FACC. Complications: NoneCardiac Rehab Consult needed: NoConfirmed administered medications: Yes ejohnson 04:45 PM Isovue 370 - 200ml,1 Bottle(s) used. ejohnson 04:45 PM 7 ml air in Vasc Band. ejohnson 04:45 PM Post ECG NSR ejohnson 04:45 PM Post Blood Pressure 108/46 ejohnson 04:45 PM 16:45 Post Pulses Rt Radial 1+ ejohnson 04:46 PM Information taught Cardiac Cath and Vasc Band ejohnson 04:46 PM Education needs Plan of Care and Responsibilities of Patient in Care ejohnson 04:46 PM Learning barriers :None ejohnson 04:46 PM Education Methods Verbal ejohnson 04:46 PM Education evaluation Able to repeat information ejohnson 04:46 PM Site status No bleeding/hematoma - Rt Wrist as reported by Madison Araujo RT (R) at 16:46 ejohnson 04:46 PM Plavix, Effient or Brilinta given No ejohnson 04:46 PM Complications: None ejohnson 04:46 PM Family placed in consult room. ejohnson 04:47 PM Lesion found in Proximal LAD. Pre Stenosis: 15 Pre KERMIT Flow: 2: Partial Flow/Perfusion (> 1 but < 3) ejohnson 04:47 PM Lesion found in Mid LAD. Pre Stenosis: 15 Pre KERMIT Flow: 2: Partial Flow/Perfusion (> 1 but < 3) ejohnson 04:47 PM Lesion found in Mid Circumflex. Pre Stenosis: 15 Pre KERMIT Flow: 2: Partial Flow/Perfusion (> 1 but < 3) ejohnson 04:47 PM Proximal Left Anterior Descending Coronary Artery with 15% stenosis. ejohnson 04:48 PM Mid/Distal Left Anterior Descending Coronary Artery and diagonal branches with 15% stenosis. ejohnson 04:48 PM Circumflex, Obtuse Marginal, Left Posterior Descending, and Left Posterolateral Coronary Arteries with 15 % stenosis. ejohnson 04:49 PM KOJZ=649/56 mmhg 04:52 PM Report given to Nasreen BURT Pt taken to Room #16. 16:52 ejohnson 04:52 PM Patient out of room: 16:52 ejohnson 04:52 PM Family placed in consult room. ejohnson 04:58 PM Time: 16:42 Patient comfortable and pain free: Yes ejohnson 04:58 PM Time: 16:42LOC: 5 = Fully awake and oriented or at pre-proc level ejohnson Complications Complication None Hemodynamics Pressures Site Systolic/A Wave Diastolic/V Wave Mean AO 78 63 71 AO 81 63 72 AO 85 68 76 AO 79 64 72 LV 85 15 22 LV 85 15 43 AO 94 66 79 Post Procedure Information Blood Pressure: 108/46 mmHg Rhythm: NSR Post procedural instructions were given Closure Device Time Device Success/Fail 12/16/2016 4:44:00 PM Mechanical Compression Successful Site Checks Time Location Status Staff Sheath In? Note 04:46 PM Rt Wrist No bleeding/hematoma Madison Araujo RT (R) Pulses Time Site Pre-Procedure Post-Procedure Note 12/16/2016 4:11:00 PM Bilateral DP \\T\\ PT 2+ 4:45:00 PM Rt Radial 1+ Updated by Zee Somers RN on 12/16/2016 4:58:58 PM Zee Somers RN electronically signed on 12/16/2016 4:59:35 PM with status of Final
[2016-12-16] MEDS: Pantoprazole 40 MG VIAL IVP SCH (21:01)
[2016-12-17] MEDS: hydrOXYzine pamoate 25 MG CAPSULE PO SCH ×3 (02:53→17:16)
[2016-12-17 04:36] LABS: Chol/HDL Ratio 4.7 (0-4.9)
[2016-12-17] MEDS: Pantoprazole 40 MG VIAL IVP SCH ×2 (05:19→17:16)
[2016-12-17] MEDS: Acetaminophen 325 MG TABLET PO PRN (08:22)
[2016-12-17] MEDS: Aspirin 81 MG TAB.CHEW PO SCH (08:22)
--- NOTE | 2016-12-17 09:36 | Cardiology Progress Note ---
Date of Encounter: 12/17/16 Time of Encounter: 08:30 Assessment and Plan (1) Atypical chest pain Current Visit: Yes Status: Acute Per cardiology: -Stress test 07/03/2016 with average excercise capacity, no chest pain, but did report left arm ache in recovery, excercise ECG negative for ischemia, LVEF 70% , perfusion imaging negative for ischemia or infarct. -Echocardiogram 06/19/16 with LVEF 70%, normal LV chamber and size, mild left ventricular diastolic dysfunction, no evidence of pulmonary hypertension, trivial pericardial effusion, no significant valvular dysfunction, hyperkinesis of apex, apical inferior, mid inferior, basal inferior, apical anterior, mid anterior, basal anterior, apical septal, mid inferior septal, basal inferior septal, apical lateral, mid anterior lateral, basal anterior septal, and basal inferior obrien. -Holter 05/2016 NSR, rare PACs, one isolated PVC noted. -Significant family history of CAD with brother with IL at 54 , father with IL no stenting or bypass, other brother with ICD unknown stenting no bypass. -[facility] 12/16/16 with preliminary report reviewed with mild, non-obstructive CAD. Right radial access site management education given. Pateint states understanding. -On asa and beta bocker. -Recommend continuing beta jolly and asa. -Will add statin. -Cardiology will sign off and will follow up in outpatient setting. Follow up set up. (GAVIN) (2) Tobacco abuse Current Visit: Yes Status: Chronic Per cardiology: -Known smoker. States smokes half a pack per day for the last 40 years. -Patient states she knows she needs to quit smoking. -Smoking cessation given fro 3-5 minutes. (GAVIN) (3) Left arm pain Current Visit: Yes Status: Chronic Per cardiology: -Left arm pain for several months. -Left upper extremity arterial duplex 07/03/[address] Loya with left upper extremity normal vessels. -States inability to obtain BP in left arm. -Recommend check BP in both arms. -Management per primary service. (GAVIN) Discussion w patient/family: The assessment and plan as outlined above was discussed with the patient and/or family members who expressed understanding and agreement. All questions were answered. Thank you for involving us in the care of your patient. Please call with any questions. Patient seen and examined with DELMA Abrams Discussed and reviewed with . Subjective Principal diagnosis: chest pain Interval history: Ms. Soler is a 61 year old female with a relevant past medical history of COPD, hyperlipidemia, chest pain, and smoking. Patient states that she started having back and left sided pain on Friday. On Friday, she started with left sided chest pain. Patient states that pain occured at rest and at its worse she would have rated it a 7/10. Patient states that pain was not relieved by anything. Patient states pain was worsened by laying flat. Patient states movement or exertion did not make pain worse. Patient states pain was like chest pressure with intermittent stabbing pains. Patient has had chest pain before, but she states this feels different than previous episodes. Patient denies congestion, fever, nausea, or vomiting. Patient admits to cough that started around the same time as pain symptoms. Patient admits to smoking half pack per day for the past 40 years. Patient states throughout the years she has averaged half of a pack per day. Patient states she had an ER visit to [facility] for chest pain prior. She states this was in April or May of 2016. Of note, I am unable to locate any documents from apparent visit in [facility] or [facility]. Patient states this visit led to be referred to Dr. Loya by her PCP. She saw Dr. Loya on 06/14/16 and a stress test was ordered. No follow up was scheduled. Patient underwent LHC 12/16/16 with right radial access. Patient denies chest pain or issues with right wrist. (GAVIN) Objective Vital Signs, Last 4 Hours Temp Pulse Resp BP Pulse Ox 12/17/16 08:34 98.8 F 95 17 146/80 92 L 12/17/16 08:10 93 L General: Conversant, No Apparent Distress HEENT: Atraumatic, Normocephaly, Mucus Membranes Moist Neck: No JVD, Normal carotid pulses Cardiac: Reg Rate and Rhythm, Normal S1 and S2, No Murmur Lungs: Normal Breath Sounds, No Wheeze, Rales, Rhonchi Neuro: Alert and responsive, No focal deficits noted Abdomen: Soft, Non-Tender Skin: No rashes noted on visualized skin, Other (Right radial access site with slight ecchymosis, no hematoma. ) Musculoskeletal: No Chest Wall Tenderness Extremities: No Clubbing, No Cyanosis, No Edema, Normal Pulses Results 12/16/16 06:28 12/16/16 06:28 Lab Results Impressions Chest CTA 12/16/16 07:36 IMPRESSION: 1. No acute pulmonary artery embolism. 2. Emphysema with biapical fibrotic changes. 3. Indeterminate mediastinal and hilar lymph nodes measure up to 1.3 cm. Findings may be reactive in nature although indeterminate. D/ / 12/16/2016 08:42:53 Joaquim Singh MD / bcarter Interpreting Provider: Joaquim Singh MD Active Medications Acetaminophen (Tylenol) 650 mg PO Q6HR PRN PRN Reason: Mild Pain (1-3) Stop: 06/17/17 09:38 Last Admin: 12/17/16 08:22 Dose: 650 mg Albuterol Sulfate (Albuterol Inhaler) 2 puff IH Q4HR PRN PRN Reason: Shortness Of Breath Stop: 06/17/17 10:20 Last Admin: 12/16/16 21:36 Dose: 2 puff Aspirin (Aspirin) 81 mg PO DAILY [facility] Stop: 06/17/17 14:01 Last Admin: 12/17/16 08:22 Dose: 81 mg Citalopram Hydrobromide (Celexa) 40 mg PO DAILY [facility] Stop: 06/18/17 09:01 Last Admin: 12/17/16 08:22 Dose: 40 mg Cyclobenzaprine HCl (Flexeril) 10 mg PO TID PRN PRN Reason: Muscle Spasm Stop: 06/17/17 10:20 Last Admin: 12/16/16 21:01 Dose: 10 mg Hydroxyzine Pamoate (Hydroxyzine Pamoate) 25 mg PO Q8H [facility] Stop: 06/17/17 10:31 Last Admin: 12/17/16 08:25 Dose: Not Given Metoprolol Tartrate (Lopressor) 25 mg PO BID [facility] Stop: 06/17/17 14:01 Last Admin: 12/17/16 08:22 Dose: 25 mg Morphine Sulfate (Morphine Sulfate) 2 mg IVP Q4HR PRN PRN Reason: Severe Pain (7-10) Stop: 06/17/17 09:38 Naloxone HCl (Narcan) 0.4 mg IVP Q2MIN PRN PRN Reason: Opioid Reversal Stop: 06/17/17 09:38 Pantoprazole Sodium (Protonix) 40 mg IVP Q12HR [facility] Stop: 06/17/17 18:01 Last Admin: 12/17/16 05:19 Dose: 40 mg Laboratory Tests 12/16/16 12/16/16 12/17/16 06:28 11:04 03:55 Troponin I 0.01 0.01 Triglycerides 96 Cholesterol 180 LDL Cholesterol, Calc 123 H HDL Cholesterol 38 L - Imaging and Cardiology Chest Xray: report reviewed Stress Test: report reviewed Echo: report reviewed Cardiac cath: report reviewed - EKG Interpretation EKG results cardiology: other (Telemetry reviewed with average HR 82. Occasional PACs noted.) Consult Discharge Plan - Plan Referrals: Gabriel Infante MD [Primary Care Provider] -
--- NOTE | 2016-12-17 11:56 | Internal Med Progress Note ---
Date of Encounter: 12/17/16 Time of Encounter: 09:00 - Assessment and plan (1) Atypical chest pain Current Visit: Yes Status: Acute Assessment and plan: Cardiac etiologies have been extensively worked up. Chest x-ray negative. CTA chest negative. Left heart catheter done yesterday, official report not available, but appears as if it was unremarkable without interventions indicated. On examination, patient has tight, diffuse wheezing and poor aeration, she is a long-time smoker, we will treat for COPD exacerbation. Do not suspect cardiac etiology. Cardiology on board and have signed off. (2) COPD with exacerbation Current Visit: Yes Status: Suspected Assessment and plan: Does not appear as if the fit patient has been officially diagnosed with COPD however she has a lengthy smoking history. On examination, tight wheezing noted throughout with poor aeration. She is on 5 L per nasal cannula and satting in the low 90s. We will treat for COPD exacerbation. We will obtain sputum culture and respiratory virus panel ITS Impressions Chest X-Ray 12/16/16 05:53 IMPRESSION: No acute disease. D/ / Ifeanyi Carlisle MD / Ifeanyi Carlisle MD Interpreting Provider: Ifeanyi Carlisle MD Chest CTA 12/16/16 07:36 IMPRESSION: 1. No acute pulmonary artery embolism. 2. Emphysema with biapical fibrotic changes. 3. Indeterminate mediastinal and hilar lymph nodes measure up to 1.3 cm. Findings may be reactive in nature although indeterminate. D/ / 12/16/2016 08:42:53 Joaquim Singh MD / juan Interpreting Provider: Joaquim Singh MD (3) Acute respiratory failure with hypoxia Current Visit: Yes Status: Acute Assessment and plan: Currently on 5 L per nasal cannula, will treat aggressively for COPD exacerbation and monitor her response. She is not on oxygen at home. (4) Tobacco abuse Current Visit: Yes Status: Chronic Assessment and plan: Patient continuing to smoke about a half pack per day, declines counseling (5) Left arm pain Current Visit: Yes Status: Chronic Assessment and plan: Chronic and unchanged, neurovascularly intact, follow-up outpatient - Subjective Interval history: Patient seen and examined. On examination, patient is sitting upright in bed watching television. Patient complaining of shortness of breath above her norm. She denies pain at this time. She is complaining of a persistent, hacking cough. - Constitutional Vitals: Temp Pulse Resp BP Pulse Ox 98.7 F 67 14 110/72 95 12/17/16 10:55 12/17/16 10:55 12/17/16 10:55 12/17/16 10:55 12/17/16 10:55 General appearance: Present: cooperative, A&O X 3, pleasant, severe distress ( moderate), answers questions appropriately - Head Head exam: Present: atraumatic, normocephalic - Eye Eye exam: Present: PERRL, conjuntiva pink, sclera anicteric Pupils: Present: PERRL - Neck Neck exam general surgery: Present: supple, trachea midline. Absent: lymphadenopathy - Respiratory Respiratory exam: Present: accessory muscle use, decreased breath sounds, prolonged expiratory phase, respiratory distress, wheezes. Absent: rales, rhonchi - Cardiovascular Cardiovascular exam: Present: RRR, +S1, +S2. Absent: diastolic murmur, gallop, rubs, systolic murmur - GI/Abdominal GI/Abdominal exam: Present: normal bowel sounds, soft, no peritoneal signs. Absent: distended, tenderness - Extremities Exam Extremities exam: Present: warm, radial pulses palpable and symetrical. Absent : calf tenderness, cyanotic, pedal edema - Neurological Exam Neurological exam: Present: alert, CN II-XII intact, normal gait, oriented X3, no focal deficits, strengths equal and symetr throughout. Absent: pronater drift, facial droop, speech deficit - Skin Skin exam: Present: dry, intact, normal color, warm Internal Medicine: Result - Labs CBC & Chem 7: 12/16/16 06:28 12/16/16 06:28 - ABG Interpretation ABG results: PT/INR, D-dimer PT 11.0 Seconds (9.4-12.1) 12/16/16 06:28 D-Dimer 490 ng/mLFEU (0-500) 12/16/16 06:28 Consult Discharge Plan - Plan Referrals: Gabriel Infante MD [Primary Care Provider] - Raysa Menjivar CNP [Partnered Physician] - 01/08/17 9:00 am
[2016-12-17] MEDS ORDERED: Benzonatate 100 MG CAPSULE PO PRN (12:00)
[2016-12-17] MEDS ORDERED: Albuterol 2.5 MG/3 ML NEBULIZER IH PRN (12:00)
[2016-12-17] MEDS ORDERED: Ondansetron 4 MG/2 ML VIAL IVP PRN (12:01)
--- NOTE | 2016-12-17 12:15 | Electrocardiograph Report ---
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
--- NOTE | 2016-12-17 13:41 | Invasive Diagnostic Lab ---
Name: Didi Soler January Date of Study: 12/16/2016 Date: 1955 Ht: 165.0 cm /65.0 in Medical Record#: [id number] Age: 61 Wt: 72. kg / 158.73 lb Account/Order#: [id number] Gender: Female BSA: 1.79 Order #: [id number] Fluoro Dose: 152 mGy BMI: 26.45 Procedure Physician: Mehul Coulter MD, FACC Referring MD: Referring MD: Procedures Performed: LEFT HEART CATH Indications: Unstable Angina Impressions: Mild atherosclerotic coronary artery disease. The left ventricle is normal and has normal contractility EF 65% Recommendations: Optimal medical therapy of patient's disease. Aggressive risk factor modification. Consider long acting nitrate for endothelial disease or microvascular dysfunction. History/Risk Factors: COPD Hypertension Dyslipidemia Chronic Lung Disease Procedure Access obtained in the right Radial artery by percutaneous puncture Complications: None, Contrast: Isovue 60ml Hemodynamics: Pressures Site Systolic/ A Wave Diastolic/ V Wave End Diastolic/ Mean HR AO 78 63 71 82 AO 81 63 72 81 AO 85 68 76 81 AO 79 64 72 81 LV 85 15 22 77 LV 85 15 43 80 AO 94 66 79 81 LV Ventriculography Ejection Method: LV Gram Ejection Fraction: 65% Wall Motion: PALENCIA Anterobasal Normal Anterolateral Normal Apical: Normal Inferoapical Normal Inferobasal Normal Coronary Dominance: right Lesion Findings/Interventions * Left Main Coronary Artery The LMCA is angiographically free of disease. * Left Anterior Descending There is a 15% stenosis in the Proximal LAD. The lesion has a KERMIT flow of 2. There is a 15% stenosis in the Mid LAD. The lesion has a KERMIT flow of 2. Small mid distal vessel * Circumflex There is a 15% stenosis in the Mid Circumflex. The lesion has a KERMIT flow of 3. * Right Coronary Artery There is a 40% stenosis in the Mid RCA. The lesion has a KERMIT flow of 3. Updated by Zee Soemrs RN on 12/16/2016 4:50:27 PM Mehul Coulter MD, FACC electronically signed on 12/17/2016 1:36:04 PM with status of Final
[2016-12-17] MEDS: methylPREDNISolone 125 MG/2 ML VIAL IVP SCH ×2 (13:54→21:28)
[2016-12-17] MEDS: Ipratropium/Albuterol Neb 3 ML IH SCH ×4 (16:12→23:09)
[2016-12-17] MEDS: Budesonide/Formoterol 160/4.5 MDI IH SCH ×2 (16:13→20:07)
[2016-12-18] MEDS: hydrOXYzine pamoate 25 MG CAPSULE PO SCH ×2 (03:04→09:10)
[2016-12-18] MEDS: Ipratropium/Albuterol Neb 3 ML IH SCH ×3 (04:02→10:49)
[2016-12-18] MEDS: Acetaminophen 325 MG TABLET PO PRN (04:18)
[2016-12-18] MEDS: methylPREDNISolone 125 MG/2 ML VIAL IVP SCH ×2 (04:19→12:45)
[2016-12-18] MEDS: Pantoprazole 40 MG VIAL IVP SCH (06:10)
[2016-12-18] MEDS ORDERED: *HR* Enoxaparin 40 MG/0.4 ML SYRINGE SQ SCH (07:00)
[2016-12-18] MEDS: Aspirin 81 MG TAB.CHEW PO SCH (08:03)
[2016-12-18] MEDS ORDERED: Levofloxacin 750 MG/150 ML 750 MG/150 ML BAG IVPB SCH (09:00)
[2016-12-18] MEDS: Budesonide/Formoterol 160/4.5 MDI IH SCH (10:49)
[2016-12-18 11:09] VITALS: BP 145/83
[2016-12-18] MEDS ORDERED: Ibuprofen 600 MG TABLET PO ONE (11:34)
--- NOTE | 2016-12-18 12:40 | Discharge Summary ---
Date of Encounter: 12/18/16 Time of Encounter: 10:45 - Discharge Diagnosis (1) Atypical chest pain Priority: Primary Status: Ruled-out Comments: Cardiac etiologies have been extensively worked up including a left heart catheter on 12/16/16 which revealed mild, nonobstructive CAD Chest x-ray negative. CTA chest negative. On examination, patient with tight, diffuse wheezing and poor aeration, she is a long-time smoker, so she was treated for a COPD exacerbation. Do not suspect cardiac etiology. Cardiology was on board and have cleared her for outpatient follow-up (2) COPD with exacerbation Priority: Primary Status: Suspected Comments: Does not appear as if this patient has been officially diagnosed with COPD however she has a lengthy smoking history. On examination, tight wheezing noted throughout with poor aeration but slightly improved on day of discharge. She initially required 5 L per nasal cannula but on day of discharge, she qualified for 2 L. Sputum culture with gram-positive cocci however repeat chest CT done on day of discharge and was unremarkable. We will treat with levofloxacin. Follow-up closely outpatient. Will also start on Symbicort. (3) Acute respiratory failure with hypoxia Priority: Primary Status: Acute Comments: Qualified for 2 L per nasal cannula continuously on day of discharge. Follow- up closely outpatient. Started on COPD controller medications. (4) Tobacco abuse Priority: Secondary Status: Chronic Comments: Declined counseling. She states she has been a continued to smoke approximately one half pack per day (5) Left arm pain Priority: Secondary Status: Chronic Comments: Chronic and unchanged, neurovascularly intact, follow-up outpatient - Discharge Medications Prescriptions: Albuterol Sulfate [Albuterol Inhaler] 2 puff IH Q4HR PRN #1 inhaler PRN Reason: Shortness Of Breath Aspirin 81 mg PO DAILY #30 tab.chew Atorvastatin [Lipitor] 40 mg PO HS #30 tablet Benzonatate [Tessalon] 200 mg PO TID PRN #30 capsule PRN Reason: Cough Budesonide/Formoterol 160/4.5 [Symbicort 160/4.5] 2 puff IH BIDR #1 inhaler GuaiFENesin ER [Mucinex] 600 mg PO BID #20 tbbp.12hr Levofloxacin 750 mg PO DAILY #10 tablet Metoprolol [Lopressor] 25 mg PO BID #60 tablet Oxygen 2 l IN CONT #1 each PredniSONE 10 mg PO DAILY #41 tablet Home Medications: Citalopram Hydrobromide [Citalopram HBr] 40 mg PO DAILY 12/31/15 [History] Cyclobenzaprine [Flexeril] 10 mg PO TID PRN 12/31/15 [History] Calcium Carbonate/Vitamin D3 [Calcium 500 + Vit D Caplet] 1 tab PO DAILY [History] Hydroxyzine HCl 12.5 - 25 mg PO Q8H 12/16/16 [History] Ibuprofen [Advil] 200 mg PO Q6H PRN 12/16/16 [History] Naproxen Sodium [Aleve] 220 mg PO 12/16/16 [History] Vitamin E (Dl,Tocopheryl Acet) [Vitamin E] 400 unit PO DAILY 12/16/16 [History] Albuterol Sulfate [Albuterol Inhaler] 2 puff IH Q4HR PRN #1 inhaler 12/18/16 [Rx ] Aspirin 81 mg PO DAILY #30 tab.chew 12/18/16 [Rx] Atorvastatin [Lipitor] 40 mg PO HS #30 tablet 12/18/16 [Rx] Benzonatate [Tessalon] 200 mg PO TID PRN #30 capsule 12/18/16 [Rx] Budesonide/Formoterol 160/4.5 [Symbicort 160/4.5] 2 puff IH BIDR #1 inhaler [Rx] GuaiFENesin ER [Mucinex] 600 mg PO BID #20 tbbp.12hr 12/18/16 [Rx] Levofloxacin 750 mg PO DAILY #10 tablet 12/18/16 [Rx] Metoprolol [Lopressor] 25 mg PO BID #60 tablet 12/18/16 [Rx] Oxygen 2 l IN CONT #1 each 12/18/16 [Rx] PredniSONE 10 mg PO DAILY #41 tablet 12/18/16 [Rx] Allergies/Adverse Reactions: Allergies acetaminophen [From Percocet] Adverse Reaction (Verified 12/16/16 09:42) Itching Oxycodone [From Percocet] Adverse Reaction (Verified 12/16/16 09:42) Itching Procedures/tests Complete & Pending: Procedures Performed prior 72 hours Category Date Time Status CT chest w con [CT] Routine Cat Scan 12/18/16 08:30 Draft Date of admission: 12/17/16 12:04 Primary care physician: Gabriel Infante Consults: 12/18/16 11:33 Consult to Boiling Tub Operator [CONS] Routine Reason for SW Consult: may need home oxygen Discharging clinician: Marcella Alexis Anticipated date of discharge: 12/18/16 (qualified for home oxygen) - Patient Status Disposition: Home, Self-Care Condition: Fair Functional capacity at discharge: independent ambulation Overall status at discharge: patient is progressing back to baseline - Discharge Instructions Follow Up With: Gabriel Infante MD [Primary Care Provider] - Raysa Menjivar CNP [Partnered Physician] - 01/08/17 9:00 am Additional Instructions: Follow-up with primary care provider within one to 2 weeks, follow-up with cardiology as scheduled - Diet and Activity Activity: increase activity as tolerated, wear oxygen at all times Diet: low fat, low cholesterol, low salt diet Hospital course: Ms. Soler is a 61 year old female with past medical history of anxiety, and tobacco abuse. Patient presented to the emergency department chief complaint chest pain that began on the day prior to presentation. Patient stated the pain was constant and located on the left side of her chest and was intermittently sharp and radiated down across her chest or back. Patient saying the pain improved with morphine and nitroglycerin in the emergency department. Patient saying this was the same kind of pain that she has had past with anxiety episodes. Of note, patient had an unremarkable stress test in June 2016. Workup in the emergency department unremarkable. Chest x-ray negative. Chest CTA negative for acute processes and revealed chronic emphysema. Patient was admitted to the hospitalist service for further evaluation and management. Cardiology was brought on board who performed a left heart catheter that revealed mild, nonobstructive CAD and no interventions were indicated. On examination however patient with poor aeration and tight, diffuse wheezing present in all lung arriaga. Patient is a long-time smoker and has not been officially diagnosed with COPD. She is on albuterol only at home. She was then treated for COPD exacerbation with acute coronary syndrome ruled out. She initially required 5 L per nasal cannula and on day of discharge, she was weaned to 2 L and qualified for home oxygen. Sputum culture revealed gram- positive cocci so repeat chest CT was obtained that was unremarkable for any changes or acute processes. Patient was admitted and observed over the course of 3 days and on day of discharge, her aeration had improved but she remained with decreased aeration. Ideally, would prefer to Try another day or 2 however the patient was insistent upon going home. Cardiology signed off and cleared her for outpatient follow-up. She was also started on controller medications Symbicort for suspected COPD. She was instructed to follow up closely outpatient with her primary care provider for possible upholstery mechanic referral. She declined smoking cessation counseling. She is discharged home in stable condition with close outpatient follow-up recommended. Of note, for further risk factor stratification, cardiology started the patient on aspirin, beta jolly, and a statin. ITS Impressions Chest X-Ray 12/16/16 05:53 IMPRESSION: No acute disease. D/ / Ifeanyi Carlisle MD / Ifeanyi Carlisle MD Interpreting Provider: Ifeanyi Carlisle MD Chest CTA 12/16/16 07:36 IMPRESSION: 1. No acute pulmonary artery embolism. 2. Emphysema with biapical fibrotic changes. 3. Indeterminate mediastinal and hilar lymph nodes measure up to 1.3 cm. Findings may be reactive in nature although indeterminate. D/ / 12/16/2016 08:42:53 Joaquim Singh MD / juan Interpreting Provider: Joaquim Singh MD Chest CT 12/18/16 08:30 IMPRESSION: 1. No significant change in appearance of the chest in comparison with the study of 12/16/2016. Namely, there is mild dependent atelectasis within the bilateral lower lobes, without acute airspace consolidation to suggest pneumonia. 2. Moderate emphysema. 3. Borderline enlarged mediastinal lymphadenopathy is stable from 2011, and likely benign given its stability. D/ / 12/18/2016 10:18:50 Antonio Aguila MD / Erin Diop Interpreting Provider: Antonio Aguila MD - Time Spent with Patient Total time spent providing and/or coordinating discharge services: - Constitutional Vitals: Temp Pulse Resp BP Pulse Ox 97.3 F L 93 17 145/83 97 12/18/16 11:08 12/18/16 11:08 12/18/16 11:08 12/18/16 11:08 12/18/16 11:08 General appearance: Present: cooperative, mild distress, A&O X 3, pleasant, answers questions appropriately - Head Head exam: Present: atraumatic, normocephalic - Eye Eye exam: Present: PERRL, conjuntiva pink, sclera anicteric Pupils: Present: PERRL - Neck Neck exam general surgery: Present: supple, trachea midline. Absent: lymphadenopathy - Respiratory Respiratory exam: Present: accessory muscle use, decreased breath sounds, prolonged expiratory phase, respiratory distress, wheezes. Absent: rales, rhonchi - Cardiovascular Cardiovascular exam: Present: RRR, +S1, +S2. Absent: diastolic murmur, gallop, rubs, systolic murmur - GI/Abdominal GI/Abdominal exam: Present: normal bowel sounds, soft, no peritoneal signs. Absent: distended, tenderness - Extremities Exam Extremities exam: Present: warm, radial pulses palpable and symetrical. Absent : calf tenderness, cyanotic, pedal edema - Neurological Exam Neurological exam: Present: alert, CN II-XII intact, normal gait, oriented X3, no focal deficits, strengths equal and symetr throughout. Absent: pronater drift, facial droop, speech deficit - Skin Skin exam: Present: dry, intact, normal color, warm
== END 2016-12-18 16:12 | disposition home or self-care (01) | DRG 190 ==
LOC: EMEROO 05:39 → 3BNU 05:39 → SUATTDRO 10:11 → 3BNU 10:27
PROVIDERS: ADMIT Registered Nurse; ATTEND Nurse Practitioner Family

== ENCOUNTER 2017-12-23 06:12 | Inpatient (IN) ==
[2017-12-23] MEDS ORDERED: Albuterol 2.5 MG/3 ML NEBULIZER IH ONE ×2 (06:35→10:30)
[2017-12-23] MEDS ORDERED: CeFAZolin Syr 2,000MG/20 ML 2,000 MG/20 ML SYRINGE IVPB ONE (06:35)
[2017-12-23] MEDS ORDERED: Ringers Solution, Lactated 1,000 ML IVC SCH (06:45)
[2017-12-23] MEDS ORDERED: Bupivacaine-MPF 0.25% 10 ML VIAL ONE (07:19)
[2017-12-23] MEDS ORDERED: Heparin 1,000 UNITS/500 mL 1,000 ML ONE ×2 (07:19→09:59)
[2017-12-23] MEDS ORDERED: Vancomycin 1,000 MG VIAL ONE (07:21)
--- NOTE | 2017-12-23 07:25 | Anesthesia Evaluation PreOp ---
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: TIA (weakness resolved), Other (carotid stenosis, lumbar disc disease, anxiety/depression) Other Medical History: Denies Any Significant HX Anesthesia History: No Prior Anesthetic Complications, Past Anesthesia (partial hysterectomy, lumbar surgery, appendectomy, right long finger closed reduction perc pinning, colonoscopy) Alcohol Use: none Drug use: none Medications and Allergies Albuterol Sulfate [Albuterol Inhaler] 1 puff IH Q4H PRN 12/12/17 [History] Aspirin [Lo-Dose Aspirin EC] 81 mg PO DAILY 12/12/17 [History] Atorvastatin [Lipitor] 40 mg PO HS 12/12/17 [History] Budesonide/Formoterol 160/4.5 [Symbicort 160/4.5] 1 puff IH BIDR 12/12/17 [ History] Citalopram Hydrobromide [Citalopram HBr] 20 mg PO DAILY 12/12/17 [History] Tiotropium [Spiriva] 18 mcg IH 0700 12/12/17 [History] 3 Allergy/AdvReac Type Severity Reaction Status Date / Time acetaminophen [From Percocet] AdvReac Intermediate Itching Verified 03/20/17 15: 20 Oxycodone [From Percocet] AdvReac Intermediate Itching Verified 03/20/17 15:18 - Meds/Allergy Pre-op Review Medications Reviewed: Yes Allergies Reviewed: Yes Beta Blockers on Current Med List: No (not anymore, BP runs low) Anesthesia Results - Labs Laboratory Tests 12/16/16 12/10/17 12/10/17 06:28 10:10 10:10 WBC Hgb Hct Plt Count PT 10.6 INR 1.0 APTT 35.1 Sodium 138 Potassium 4.3 Chloride 106 Carbon Dioxide 26 BUN 10 Creatinine 0.81 Est GFR ( Amer) > 60 Est GFR (Non-Af Amer) > 60 BUN/Creatinine Ratio 12 Glucose 98 Est Mean Plasma Glucose 111 Hemoglobin A1c 5.5 Calculated Osmolality 285 Calcium 9.1 12/10/17 10:10 WBC 8.7 Hgb 15.4 Hct 47.1 H Plt Count 385 PT INR APTT Sodium Potassium Chloride Carbon Dioxide BUN Creatinine Est GFR ( Amer) Est GFR (Non-Af Amer) BUN/Creatinine Ratio Glucose Est Mean Plasma Glucose Hemoglobin A1c Calculated Osmolality Calcium - Imaging EKG: report reviewed, image reviewed (SR) Additional studies: TTE: Impressions: Normal sinus rhythm. HR 90s. LVEF 70%. Normal LV chamber size, wall thickness and function. Mild left ventricular diastolic dysfunction. Normal right ventricular structure and function. No evidence of pulmonary hypertension. There is a trivial pericardial effusion present. No significant valvular dysfunction. Holter: Impression: 1. Baseline rhythm is normal sinus throughout recording. 2. Rare PACs. Isolated PVC. 3. No atrial or ventricular arrhythmias. No pauses. 4. No diary of symptoms returned by patient. Cardiac cath: Impressions: Mild atherosclerotic coronary artery disease. 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
[2017-12-23] MEDS ORDERED: Heparin 1,000 UNITS/500 mL 500 ML ONE (07:42)
[2017-12-23] MEDS ORDERED: *HR* Succinylcholine 200 MG/10 ML VIAL IVP ONE (07:42)
[2017-12-23] MEDS ORDERED: EPHEDrine 50 MG/ML VIAL ONE (07:42)
[2017-12-23] MEDS ORDERED: Lidocaine -MPF 2% 2 ML VIAL ONE ×2 (07:42→08:00)
[2017-12-23] MEDS ORDERED: *HR* Propofol 200 MG/20 ML VIAL IVP ONE ×2 (07:42→10:14)
[2017-12-23] MEDS ORDERED: *HR* Phenylephrine 10 MG/ML VIAL ONE (07:42)
[2017-12-23] MEDS ORDERED: *HR* FentaNYL (PF) 100 MCG/2 ML VIAL ONE ×2 (07:42→10:13)
[2017-12-23] MEDS ORDERED: *HR* Midazolam HCl 2 MG/2 ML VIAL ONE (07:42)
[2017-12-23] MEDS ORDERED: *HR* Etomidate 40 MG/20 ML VIAL IVP ONE (07:43)
--- NOTE | 2017-12-23 07:45 | History & Physical Report ---
Date of Encounter: 12/23/17 Time of Encounter: 07:25 24 Hour HP Update - Instructions Instructions: If the History and Physical is less than 30 days old and was completed prior to A.M. admission and or procedure and has NOT been updated on calendar day of procedure please complete this update prior to performing procedure. - Update Patient reports changes in Medical Condition: No Changes in examination, assessment, or condition: No Changes in Medication: No Preop tests/diagnostics Reviewed: Yes Surgery Remains Indicated: Yes Consent for Planned Operative Procedure(s) Verified: Yes - Pre-Operative Checklist Preoperative Checklist Indicated: Yes Prophylactic Antibiotic Ordered: Yes Home Medications Include Beta Sulma: No Beta Sulma Taken Today (Day of Surgery): No Beta Sulma Taken Yesterday (Day Prior to Surgery): No Is VTE Prophylaxis Indicated?: Yes
[2017-12-23] MEDS ORDERED: ceFAZolin 1,000 MG, Sodium Chloride IRRigation 1,000 ML IR ONE (08:00)
[2017-12-23] MEDS ORDERED: Vancomycin 1,000 MG, Sodium Chloride IRRigation 1,000 ML IR ONE (08:00)
[2017-12-23] MEDS ORDERED: Isovue-300 50 ML VIAL IVP ONE (08:16)
[2017-12-23] MEDS ORDERED: *HR* Rocuronium Bromide 50 MG/5 ML VIAL ONE (08:36)
[2017-12-23] MEDS ORDERED: Dexamethasone 4 MG/ML VIAL ONE (09:01)
[2017-12-23] MEDS ORDERED: *HR* Heparin 5,000 UNIT/ML VIAL ONE (09:01)
[2017-12-23] MEDS ORDERED: Ondansetron 4 MG/2 ML VIAL ONE (09:01)
[2017-12-23] MEDS ORDERED: Neostigmine Methylsulfate 3 MG/3 ML SYRINGE ONE (10:15)
[2017-12-23] MEDS ORDERED: *HR* OxyCODONE Immed Rel 5 MG TABLET PO PRN (10:30)
--- NOTE | 2017-12-23 10:56 | Operative Note ---
Date of procedure: 12/23/17 Pre-op diagnosis: left subclavian steal syndrome Post-op diagnosis: same Procedure: open exposure of left brachial artery angioplasty of proximal left subclavian with 9 x 25 mm balloon expandable stent Complications: none Anesthesia: GETA Surgeon: Nikhil Sneed Was there an elementary assistant teacher present: No Estimated blood loss (cc): 50 Specimen: none Condition: stable Disposition: PACU Procedure in Detail: History Didi Soler is a 62-year-old white female who was referred to vascular surgery because abnormal left upper extremity vascular exam. Patient has had other neurologic symptoms including weakness and loss of balance. Marked reduction in blood pressure was noted in the left upper extremity. The patient's son have no palpable pulses. She went on to have a arch aortogram and carotid artery angiogram last week. This demonstrated an occluded proximal left subclavian artery with vertebral flow in a retrograde manner consistent with subclavian steal syndrome. Attempts at passing a wire through the obstruction antegrade run successful. The patient now comes to the operating room for a retrograde approach. Procedure After informed consent was obtained the patient was taken to the operating room. General endotracheal anesthesia was established. A timeout protocol was observed after the area was prepped and draped. An incision was made on the distal left upper arm region. Dissection was carried down to reveal the brachial artery. The brachial artery was closely adherent to the brachial nerve which laid immediately anterior to the vessel. The vessel itself was small and pulseless. Dissection was made of the vessel and control obtained with Vesseloops. Using a micropuncture technique the artery was punctured and a wire inserted. This was followed by a 4-Spanish catheter. This was flushed. Then this was exchanged over a 0.035 J-wire for a 5-Spanish 23 cm long sheath. Then a Glidewire was inserted as well as a burn catheter. An angiogram was obtained of the subclavian artery. This demonstrated the occlusion with patency of the left temporal artery. Multiple attempts were then made using the Glidewire to pass through the obstruction. This was unsuccessful. This was then exchanged out for a victory wire. The victory wire was able to pass through the obstruction and the Glidewire was then advanced over this and passed into the thoracic aorta. Appropriate positioning was then confirmed with use of contrast injection. With this done the sheath was exchanged from a 5-Spanish to a 7-Spanish sheath. Also heparin was administered a dose of 5000 units intravenously. After 3 minute delay a balloon expandable stent was placed into the proximal left subclavian artery obstruction. A 9 mm x 25 mm balloon expandable stent was selected and deployed without complication. Completion and Luis demonstrated patency of the left subclavian artery with antegrade flow. Flow through the left vertebral was no antegrade and preserved. There are no signs of hematoma or extravasation of contrast. With this done the devices and wires were removed. The puncture site at the left brachial artery was then repaired using a 6-0 Prolene suture. After appropriate backbleeding and flushing the artery was opened. Pulsatile flow was then achieved into the brachial artery and into the upper extremity. Palpable radial pulse was documented as were Doppler signals over the radial and ulnar artery at the wrist and into the palmar surface of the hand. The hand was warm and pink with less than 2 second capillary refill. Marcaine was then infiltrated into the wound and the wound was closed in layers using absorbable suture. A dry sterile dressing was applied. There were no intraoperative complications. The patient tolerated the procedure well. The patient was extubated in the operating room and taken to the recovery room in stable condition.
--- NOTE | 2017-12-23 11:29 | Anesthesia Evaluation Post Op ---
Date of Encounter: 12/23/17 Time of Encounter: 11:28 - Vital Signs Vital Signs: Last Vital Signs Temp 98.2 F 12/23/17 06:47 Pulse 91 12/23/17 06:47 Resp 18 12/23/17 06:47 BP 103/57 12/23/17 06:47 Pulse Ox 91 12/23/17 06:47 - Lungs Lungs: Clear Ascult./Percussion - Airway Airway: Non-obstructed - Cardiovascular Regular Rate - Mental Status Mental Status: Alert & Oriented, Answers Appropriately - Pain Pain Scale: 2 - Nausea Vomiting Nausea Vomiting: Not Present - Hydration Hydration: NPO, Kuo catheter - Discharge PostOp Status: Transfer Patient to floor
[2017-12-23] MEDS ORDERED: *HR* Metoprolol 5 MG/5 ML VIAL IVP PRN (12:44)
[2017-12-23] MEDS ORDERED: Naloxone 0.4 MG/ML INJ IVP PRN (12:44)
[2017-12-23] MEDS ORDERED: *HR* HYDROcodone/Acet 5/325 mg TABLET PO PRN (12:44)
[2017-12-23] MEDS ORDERED: Acetaminophen 325 MG TABLET PO PRN (12:44)
[2017-12-23] MEDS ORDERED: Ondansetron 4 MG/2 ML VIAL IVP PRN (12:44)
[2017-12-23] MEDS ORDERED: CeFAZolin Premix DUPLEX 2,000 MG/50 ML BAG IVPB SCH (16:00)
[2017-12-23] MEDS: ceFAZolin 2,000 MG in D5% in Water 100 ML IVPB SCH (16:56)
[2017-12-23] MEDS: Budesonide/Formoterol 160/4.5 MDI IH SCH (20:15)
[2017-12-24] MEDS: ceFAZolin 2,000 MG in D5% in Water 100 ML IVPB SCH ×2 (00:15→08:34)
[2017-12-24 04:32] LABS: Basophils # 0.1 K/mcL (0.0-0.2); Basophils % 0.3 %; Hematocrit 37.6 % (35.3-44.9); Hemoglobin 12.6 g/dL (11.5-15.4); Immature Granulocytes % 0.3 % (0-4); Lymphocytes # 2.5 K/mcL (0.6-4.6); Lymphocytes % 16.5 %; Mean Corpuscular HGB Conc 33.5 g/dL (31.6-35.5); Mean Corpuscular Hemoglobin 29.5 pg (28.0-33.3); Mean Corpuscular Volume 88.1 fL (83.0-100.0); Mean Platelet Volume 10.9 fL (9.4-12.4); Monocytes % 6.8 %; Neutrophils # 11.6 K/mcL (1.6-8.9); Platelet Count 335 K/mcL (140-400); Red Blood Count 4.27 M/mcL (3.82-4.97); Red Cell Distribution Width 13.4 % (11.5-14.5); Segmented Neutrophils % 76.1 %
[2017-12-24 04:36] LABS: BUN/Creatinine Ratio 13 (6-26); Blood Urea Nitrogen 9 mg/dL (8-23); Calcium 8.9 mg/dL (8.6-10.3); Carbon Dioxide 26 mEq/L (23-29); Chloride 107 mEq/L (98-107); Glucose 109 mg/dL (70-105); Osmolality,Calculated 285 (280-300); Potassium 4.2 mEq/L (3.5-5.1); Sodium 138 mEq/L (136-145); eGFR For African Americans > 60 (> 60); eGFR For Non-African Americans > 60 (> 60)
[2017-12-24] MEDS ORDERED: Tiotropium 18 MCG inhalation IH SCH (07:00)
[2017-12-24] MEDS: Budesonide/Formoterol 160/4.5 MDI IH SCH (07:30)
[2017-12-24] MEDS ORDERED: Aspirin Enteric Coated 81 MG Tablet PO SCH (09:00)
[2017-12-24 11:14] VITALS: BP 101/52
--- NOTE | 2017-12-24 11:50 | Discharge Summary ---
Date of Encounter: 12/24/17 Time of Encounter: 11:46 - Discharge Diagnosis (1) Tobacco abuse Priority: Secondary Status: Chronic Comments: Patient has history of tobacco abuse. (2) Left arm pain Priority: Primary Status: Chronic Comments: Patient was identified as having left subclavian artery occlusion as well as blood pressure discrepancies. A subclavian steal phenomenon was identified and treated with stent angioplasty. (3) COPD with exacerbation Priority: Secondary Status: Resolved Comments: History of COPD - Hospital Course Hospital course: Ms. Soler is a 62 year old female With history of left upper extremity discomfort. This led to a workup that identified a left subclavian artery occlusion. The patient went on to have an angiogram. She was found to have a proximal subclavian artery occlusion that could not be treated through an antegrade approach. Therefore the patient in the operating room. A brachial artery cutdown was performed and a retrograde approach was successful in placing a stent in the left subclavian artery occlusion. The patient tolerated the procedure well. She had no periprocedural complications. She was neurologically intact. She had yarsanism of palpable pulses in the left upper extremity. She was felt fit for discharge on postoperative day #1. Instructions were provided to the patient prior to discharge. A prescription for Plavix will be given to the patient for a 90 days. - Time Spent with Patient Total time spent providing and/or coordinating discharge services: - Discharge Medications Prescriptions: Clopidogrel Bisulfate [Plavix] 75 mg PO DAILY #30 tablet Home Medications: Albuterol Sulfate [Albuterol Inhaler] 1 puff IH Q4H PRN 12/12/17 [History] Aspirin [Lo-Dose Aspirin EC] 81 mg PO DAILY 12/12/17 [History] Atorvastatin [Lipitor] 40 mg PO HS 12/12/17 [History] Budesonide/Formoterol 160/4.5 [Symbicort 160/4.5] 1 puff IH BIDR 12/12/17 [ History] Citalopram Hydrobromide [Citalopram HBr] 20 mg PO DAILY 12/12/17 [History] Tiotropium [Spiriva] 18 mcg IH 0700 12/12/17 [History] Clopidogrel Bisulfate [Plavix] 75 mg PO DAILY #30 tablet 12/24/17 [Rx] Allergies/Adverse Reactions: 3 Allergy/AdvReac Type Severity Reaction Status Date / Time acetaminophen [From Percocet] AdvReac Intermediate Itching Verified 03/20/17 15: 20 Oxycodone [From Percocet] AdvReac Intermediate Itching Verified 03/20/17 15:18 Date of admission: 12/23/17 12:30 Primary care physician: Gabriel Infante Consults: None Procedure(s) Performed: Open left brachial exposure Left subclavian artery stent angioplasty Discharging clinician: Nikhil Sneed Anticipated date of discharge: 12/24/17 Exam Vital Signs, Last 4 Hours Temp Pulse Resp BP Pulse Ox 12/24/17 11:10 98.2 F 89 20 101/52 95 12/24/17 08:58 95 General: Present: Conversant, No Apparent Distress, Well developed, Well nourished HEENT: Present: Atraumatic, Normocephaly, Trachea midline Neck: Absent: JVD, Midline deformity, Tracheal deviation Cardiac: Present: Reg Rate and Rhythm, Normal S1 and S2 Lungs: Present: Normal Breath Sounds Neuro: Present: Alert and responsive, No focal deficits noted, Cranial nerves grossly intact, Motor nerves grossly intact, Sensory nerves grossly intact Vascular: Present: Pulse, normal, Color/Temperature. Absent: Cyanosis, Edema Skin: Present: No rashes noted on visualized skin - Patient Status Disposition: Home, Self-Care Condition: Good Functional capacity at discharge: independent ambulation Overall status at discharge: patient is progressing back to baseline - Discharge Instructions Follow Up With: Gabriel Infante MD [Primary Care Provider] - 01/02/18 9:45 am Nikhil Sneed MD [Partnered Physician] - 01/14/18 9:45 am Additional Instructions: Remove left arm dressing tomorrow Keep left arm surgical site dry for total 5 days following surgery No lifting greater than 10 pounds with left upper extremity. No manual labor Plavix 75 mg for the next 90 days - Diet and Activity Activity: increase activity as tolerated Diet: advance to your usual diet - VTE Documentation of Mechanical Device: Intermittent pneumatic compression device
== END 2017-12-24 13:20 | disposition home or self-care (01) | DRG 982 ==
LOC: SAMDAY 06:12 → 2NNU 12:30
PROVIDERS: ADMIT Surgery Vascular Surgery; ATTEND Surgery Vascular Surgery